=== PATIENT | female | born 1995 | race Caucasian/White ===

== ENCOUNTER 2020-07-16 11:57 | Outpatient (REF) | payer OTHER, SELFPAY | END 2020-07-16 11:58 | disposition home or self-care (01) | LOC: HO.LAB 11:57 | PROVIDERS: Visit Provider Internal Medicine | DX: Z20.828 Contact with and (suspected) exposure to other viral communicable diseases (principal) | CPT/HCPCS: C9803; U0003 ==

== ENCOUNTER 2020-08-09 19:25 | Emergency (ER) | payer OTHER, SELFPAY ==
[2020-08-09 20:39] VITALS: BP 125/66; PULSE 77; RESP 16; TEMP 37; O2SAT 100; BMI 17.6
[2020-08-09 22:43] VITALS: BP 113/70; PULSE 94; RESP 16; TEMP 37.1; O2SAT 98
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
[2020-08-10] MEDS: Ibuprofen 600 MG TABLET PO (00:01)
== END 2020-08-10 01:05 | disposition home or self-care (01) ==
PROVIDERS: Emergency Provider Internal Medicine
DX: S13.4XXA Sprain of ligaments of cervical spine, initial encounter (principal); V48.6XXA Car passenger injured in noncollision transport accident in traffic accident, initial encounter; Y93.89 Activity, other specified; Y92.414 Local residential or business street as the place of occurrence of the external cause; Y99.9 Unspecified external cause status
CPT/HCPCS: 71046; 72040; 99283; 99284

== ENCOUNTER 2024-04-10 19:05 | Emergency (ER) | payer MEDICAID, SELFPAY ==
--- NOTE | ~2024-04-10 | US_ITS ---
EXAMINATION: US OBSTETRICAL ULTRASOUND CLINICAL INFORMATION: First trimester pelvic pain, rule out ectopic COMPARISON: None from this TECHNIQUE: Sonographic evaluation of the pelvis was performed transabdominally. FINDINGS: There is a single intrauterine gestational sac with visible yolk sac, embryo/fetus, and cardiac activity. There is no significant subchorionic hemorrhage or hematoma. HR: 118 beats per minute. CRL (crown rump length): 0.4 cm (6 weeks 2 days +/- 4 days). JERRICA (estimated date of delivery): 12/04/2024 +/- 4 days. MATERNAL ADNEXA: The right maternal ovary measures 2.8 x 1.9 x 2.0 cm and appears unremarkable. The left maternal ovary measures 2.7 x 2.1 x 1.6 cm and appears unremarkable. There is no significant maternal adnexal mass. No maternal pelvic ascites. US/US OB <= 14 weeks fetus IMPRESSION: 1. Single intrauterine gestation with ultrasound gestational age of 6 weeks 2 days +/- 4 days. 2. Estimated date of delivery is 12/04/2024 +/- 4 days. 3. No maternal adnexal mass or pelvic ascites. Electronically signed by: Osvaldo Godinez MD 04/11/2024 03:48 AM EDT
--- NOTE | 2024-04-10 19:09 | ED.NAVMDI ---
HPI - Nausea/Vomiting/Diarrhea General Chief complaint: Nausea/Vomiting/Diarrhea Stated complaint: vomiting ,nausea dizziness Time Seen by Provider: 04/11/24 01:25 History of Present Illness ED Provider: Philip VALDEZ Narrative: The patient is a 28-year-old female who says that she has a proximally 1 month . This is her 3rd . Over the last couple of weeks she has had a lot of nausea and vomiting and difficulty keeping foods down. She has had some mild lower abdominal pain or cramping but no vaginal bleeding. Her discomfort does not lateralize. She has not yet had an ultrasound. She says that she has not had this degree of nausea and vomiting with her previous pregnancies. No fever, sweats, chills. Last mentstrual period was in February. Related Data Previous Rx's ?Medication ?Instructions ?Recorded cyclobenzaprine 10 mg tablet 10 mg PO TID PRN muscle spasm #14 08/09/20 tabs ibuprofen 600 mg tablet 600 mg PO TID PRN pain #20 tabs 08/09/20 doxylamine 10 mg-pyridoxine (vit 1 tab PO BID PRN nausea and 04/11/24 B6) 10 mg tablet,delayed release vomiting #14 tabs (Diclegis) Allergies Allergy/AdvReac Type Severity Reaction Status Date / Time No Known Allergies Allergy Verified 04/10/24 19:12 [No Known Allergies*] Review of Systems Review of Systems: Yes all other systems are reviewed and are negative [facility] Past Medical History Medical History (Updated 04/12/24 @ 00:01 by Nadia Wray) No known health problems Social History Social History Smoked in Last 30 Days: Yes Use of substances other than those prescribed or required for medical reasons: No Advance Directives: No Advance Directives Information Provided: No Do you have a plan to hurt others: No Plan Patient : Yes Physical Exam Vital Signs: Vital Signs: Last Vital Signs Temp 98.4 F 04/11/24 04:12 Pulse 88 04/11/24 04:12 Resp 16 04/11/24 04:12 BP 100/53 L 04/11/24 04:12 Pulse Ox 99 04/11/24 04:12 O2 Del Method Room Air 04/11/24 04:12 BMI result Body Mass Index 23.8 Const: Other: the patient has the appearance of a not nearly healthy 28-year-old woman. She does not appear in acute distress. HEENT: Other: Face is symmetrical. Mucous membranes moist. Eyes: General: appearance normal, both eyes and all related structures Neck: Neck: Yes full ROM Resp: Effort & Inspection: normal respiratory effort Auscultation: clear to auscultation bilaterally Cardio: Rate: regular rate Rhythm: regular rhythm Heart sounds: S1 normal heart sound present and S2 normal heart sound present GI: Other: Abdomen is soft and without significant tenderness. She does not have any significant lower abdominal tenderness. Skin: Other: Skin is dry and unremarkable. Neuro: Other: The patient is awake and alert with normal mental status. Cranial nerves are grossly intact. She moves her extremities normally and has a normal gait. Extrem: Other: No calf swelling or tenderness, no peripheral edema, no asymmetry. Course Course Course Narrative: This is a Rapid Medical Examination (RME) performed by Spike Spivey PA-C in triage. Full HPI, ROS, assessment and treatment plan per primary provider in the Main ED. 28 yo female currently 4 weeks presents to the ER for evaluation of recurrent vomiting and dizziness. she states she vomits all day long. not able to drink water but can tolerate george christopher and sprite. she reports lower abdominal cramping for the last 5 days as well but not bleeding. she told her OB about the pain but they told her it was natural. vss in triage. she appears well. she reports similar issues with her previous pregnancies. Plan: lab workup, IVF and antiemetics as needed Medications Administered Discontinued Medications Generic Name Dose Route Start Last Admin Trade Name Freq PRN Reason Stop Dose Admin Sodium Chloride 1,000 mls @ 999 mls/hr 04/11/24 01:30 04/11/24 02:25 Ns IV 04/11/24 02:30 Infused .Q1H1M AVELINA Infusion Metoclopramide HCl 10 mg 04/11/24 01:28 04/11/24 01:45 Metoclopramide Hcl 10 Mg/2 Ml Vial IVPUSH 04/11/24 01:29 10 mg ONCE ONE Administration Medical Decision Making Medical Decision Making MDM Narrative: The patient is a 28-year-old female who is her last menstrual period was in February making her under 2 months . She has not had an ultrasound of this . She presents complaining of nausea and vomiting and she is also complaining of lower abdominal pain although she has a benign abdominal exam. Labs are unremarkable. Her beta hCG is 72,000. Given her complaint of lower abdominal pain an ultrasound was obtained that showed a live intrauterine with a heart rate of about 170. patient was treated with metoclopramide for nausea. He seemed to feel better. She will be discharged with instructions follow-up with OBGYN. she was given a prescription for pyridoxine and doxylamine. Lab Data 04/10/24 20:08 04/10/24 20:08 Labs: Lab Results 04/10/24 Range/Units 20:08 WBC 11.7 H (4.8-10.8) X10*3/uL RBC 4.42 (4.20-5.50) X10*6/uL Hgb 13.4 (12.0-16.0) g/dl Hct 39.4 (37.0-47.0) % MCV 89.1 (80.0-98.0) fL MCH 30.3 (27.0-33.0) pg MCHC 34.0 (31.0-35.0) g/dl RDW 12.8 (11.0-16.0) % Plt Count 245 (160-400) X10*3/uL MPV 9.9 (9.4-12.3) fL Immature Gran % (Auto) 0.3 (0.0-0.4) % Neut % (Auto) 63.9 (45-73) % Lymph % (Auto) 27.6 (20-40) % Mccracken % (Auto) 5.9 (2-11) % Eos % (Auto) 1.9 (0-4) % Baso % (Auto) 0.4 (0-2) % Lymph # (Auto) 3.2 (1.2-4.9) X10*3/uL Mccracken # (Auto) 0.7 (0.1-1.2) X10*3/uL Eos # (Auto) 0.2 (0.0-0.4) X10*3/uL Baso # (Auto) 0.1 (0.0-0.2) X10*3/uL Abs Immat Gran (auto) 0.04 H (0.00-0.03) X10*3/uL Absolute Neuts (auto) 7.5 (2.0-8.3) x10*3/uL Absolute Nucleated RBC 0.000 (0.0-0.012) X10*3/uL Nucleated RBC % (auto) 0.0 (0.0-0.2) /100WBC Sodium 137 (135-145) mmol/L Potassium 3.8 (3.3-5.1) mmol/L Chloride 106 (96-108) mmol/L Carbon Dioxide 24 (22-29) mmol/L Anion Gap 11 L (12-20) BUN 8 L (9-16) mg/dL Creatinine 0.65 (0.5-1.4) mg/dL Estim Creat Clear Calc 108.5 Estimated GFR > 60 Random Glucose 89 (60-115) mg/dL Calcium 9.5 (8.4-10.2) mg/dL Magnesium 2.2 (1.6-2.6) mg/dL Total Bilirubin 0.3 (0.0-1.0) mg/dL Direct Bilirubin 0.2 (0.0-0.5) mg/dL AST 17 (5-31) U/L ALT 15 (0-31) U/L Alkaline Phosphatase 56 (39-117) U/L Total Protein 7.0 (6.5-8.0) g/dL Albumin 4.1 (3.5-5.0) g/dL Beta HCG, Quant 76535 mIU/mL Discharge Plan Discharge Clinical Impression: Vomiting during Patient Disposition: Home, Self-Care Instructions: Nausea and Vomiting in (ED) Additional Instructions: I have sent a prescription for a medication you can try and see if it helps with nausea associated with your . Please plan on following up with your OB practice soon. The ultrasound today shows that your is 6 weeks and 2 days. Return to the emergency room if significantly worse. Prescriptions: New doxylamine-pyridoxine (vit B6) [Diclegis] 10-10 mg tablet,delayed release (DR/EC) 1 tab PO BID PRN (Reason: nausea and vomiting) Qty: 14 0RF No Action cyclobenzaprine 10 mg tablet 10 mg PO TID PRN (Reason: muscle spasm) Qty: 14 0RF ibuprofen 600 mg tablet 600 mg PO TID PRN (Reason: pain) Qty: 20 0RF Interventions: ED Discharge Assessment Last Done: 04/11/24 04:12 Discharge Date/Time: 04/11/24 04:13 Print Language: Albanian
[2024-04-10 19:10] VITALS: BP 124/83; PULSE 87; RESP 16; TEMP 36.8; O2SAT 100; BMI 23.8
[2024-04-10 20:18] LABS: MANUAL DIFF FLAG NO
[2024-04-10 20:27] LABS: Basophils Absolute Auto 0.1 X10*3/uL (0.0-0.2); Basophils Percent Auto 0.4 % (0-2); Eosinophils Absolute Auto 0.2 X10*3/uL (0.0-0.4); Eosinophils Percent Auto 1.9 % (0-4); Hematocrit 39.4 % (37.0-47.0); Hemoglobin 13.4 g/dl (12.0-16.0); Imm Gran Abs Auto 0.04 X10*3/uL (0.00-0.03); Imm Gran Pct Auto 0.3 % (0.0-0.4); Lymphocytes Absolute Auto 3.2 X10*3/uL (1.2-4.9); Lymphocytes Percent Auto 27.6 % (20-40); Mean Corpuscular Hemoglobin 30.3 pg (27.0-33.0); Mean Corpuscular Volume 89.1 fL (80.0-98.0); Mean Platelet Volume 9.9 fL (9.4-12.3); Monocytes Absolute Auto 0.7 X10*3/uL (0.1-1.2); Monocytes Percent Auto 5.9 % (2-11); Neutrophils Absolute Auto 7.5 x10*3/uL (2.0-8.3); Neutrophils Percent Auto 63.9 % (45-73); Platelet Count 245 X10*3/uL (160-400); Red Blood Count 4.42 X10*6/uL (4.20-5.50); Red Cell Distribution Width 12.8 % (11.0-16.0); White Blood Count 11.7 X10*3/uL (4.8-10.8)
[2024-04-10 20:53] LABS: Alanine Aminotransferase 15 U/L (0-31); Albumin Level 4.1 g/dL (3.5-5.0); Alkaline Phosphatase 56 U/L (39-117); Anion Gap 11 (12-20); Aspartate Amino Transferase 17 U/L (5-31); Bilirubin Direct 0.2 mg/dL (0.0-0.5); Bilirubin Total 0.3 mg/dL (0.0-1.0); Blood Urea Nitrogen 8 mg/dL (9-16); Calcium 9.5 mg/dL (8.4-10.2); Carbon Dioxide 24 mmol/L (22-29); Chloride 106 mmol/L (96-108); Creatinine Clr Calc Pharmacy 108.5; Estimated Glomerular Filt Rate > 60; Glucose Random 89 mg/dL (60-115); Magnesium 2.2 mg/dL (1.6-2.6); Potassium 3.8 mmol/L (3.3-5.1); Sodium 137 mmol/L (135-145)
--- NOTE | 2024-04-11 01:05 | PC.NURSE ---
pt from lobby, assume care of pt at this [facility] e
[2024-04-11] MEDS: Metoclopramide HCl 10 MG/2 ML VIAL IVPUSH (01:45)
[2024-04-11] MEDS: 0.9 % Sodium Chloride 1,000 ML 999 ML IV (01:45)
[2024-04-11 02:18] VITALS: BP 123/69; PULSE 78; RESP 16; TEMP 36.9; O2SAT 100
--- NOTE | 2024-04-11 02:31 | PC.NURSE ---
pt back from US, awaitng results, pt requested crackers, per MD shanks, pt given crackers and george christopher
[2024-04-11 04:12] VITALS: BP 100/53; PULSE 88; RESP 16; TEMP 36.9; O2SAT 99
== END 2024-04-11 04:13 | disposition home or self-care (01) ==
PROVIDERS: Physician Assistant; Emergency Provider Emergency Medicine
DX: O21.9 Vomiting of pregnancy, unspecified (principal); Z3A.01 Less than 8 weeks gestation of pregnancy
CPT/HCPCS: 36415; 76801; 80048; 80076; 83735; 84702; 85025; 96361; 96374; 99284; J2765